=== PATIENT | female | born 1965 | race Hispanic/Latino ===

== ENCOUNTER 2024-02-18 07:26 | Day surgery (SDC) | payer OTHER ==
[2024-02-18] VITALS (10 sets, daily range): BP systolic 95–128; BP diastolic 63–73; PULSE 61–69; RESP 14–16
[~2024-02-18] VITALS: Ht 157.5 cm; Wt 63.5 kg
[~2024-02-18 07:26] MED LIST: ATOR10 PO; DAPA10TA PO; FAMO-136 PO; METF-446 PO
[2024-02-18] MEDS: 0.9%NACL 1000ML 1,000 ML IV ONE (10:07)
== END 2024-02-18 11:40 | disposition home or self-care (01) ==
LOC: DAH 07:26 → ENDO 07:26
PROVIDERS: ATTEND Internal Medicine
DX: Z12.11 Encounter for screening for malignant neoplasm of colon (principal); K57.30 Diverticulosis of large intestine without perforation or abscess without bleeding; K21.00 Gastro-esophageal reflux disease with esophagitis, without bleeding; K29.70 Gastritis, unspecified, without bleeding; K31.A0 Gastric intestinal metaplasia, unspecified; R12 Heartburn; R11.2 Nausea with vomiting, unspecified; E78.00 Pure hypercholesterolemia, unspecified; E11.9 Type 2 diabetes mellitus without complications; Z88.6 Allergy status to analgesic agent; Z88.8 Allergy status to other drugs, medicaments and biological substances; Z79.899 Other long term (current) drug therapy; Z79.84 Long term (current) use of oral hypoglycemic drugs; Z90.49 Acquired absence of other specified parts of digestive tract
CPT/HCPCS: 81025; 45385; 43239; 82948 ×2; J7030 ×2; A4620; A4215 ×2; A4223; A4222; A4221; A4663; A4606

== ENCOUNTER 2025-02-16 07:47 | Day surgery (SDC) | payer OTHER ==
[2025-02-16] VITALS (12 sets, daily range): BP systolic 101–126; BP diastolic 54–90; PULSE 63–82; RESP 15–16; TEMP 97.4–97.8
[~2025-02-16] VITALS: Ht 162.6 cm; Wt 64.4 kg
[2025-02-16] MEDS: 0.9%NACL 1000ML 1,000 ML IV ONE (09:01)
[2025-02-16] MEDS ORDERED: proPOFol 10 MG/ML 20ML VIAL IV ONE (11:15)
== END 2025-02-16 12:40 | disposition home or self-care (01) ==
LOC: ENDO 07:47 → DAH 07:47 → ENDO 12:40
PROVIDERS: ATTEND Internal Medicine Gastroenterology
DX: Z09 Encounter for follow-up examination after completed treatment for conditions other than malignant neoplasm (principal); R12 Heartburn; K64.0 First degree hemorrhoids; K57.30 Diverticulosis of large intestine without perforation or abscess without bleeding; K29.50 Unspecified chronic gastritis without bleeding; K31.89 Other diseases of stomach and duodenum; D12.6 Benign neoplasm of colon, unspecified; E78.00 Pure hypercholesterolemia, unspecified; E11.9 Type 2 diabetes mellitus without complications; K29.70 Gastritis, unspecified, without bleeding; Z86.0100 Personal history of colon polyps, unspecified; Z90.49 Acquired absence of other specified parts of digestive tract; Z79.899 Other long term (current) drug therapy; Z79.84 Long term (current) use of oral hypoglycemic drugs; Z88.8 Allergy status to other drugs, medicaments and biological substances
CPT/HCPCS: 43239; 45378; 82948; 81025; J7030; J2704; A4620; A4215; A4223; A4222; A4221; A4663; A4606; J3490